=== PATIENT | female | born 1960 | race Caucasian/White ===

== ENCOUNTER → 2017-07-19 | Outpatient (REF) | payer OTHER, BC ==
[2017-07-22 00:06] LABS: Lyme Disease IgG/IgM Antibodie <0.91 ISR (0.00-0.90); Lyme Disease IgM Ab Quantitati <0.80 index (0.00-0.79)
== END ==
LOC: M LAB REF 16:54
PROVIDERS: ATTEND Nurse Practitioner Family
DX: M25.562 Pain in left knee (principal)

== ENCOUNTER → 2017-11-17 | Outpatient (REF) | payer OTHER ==
[2017-11-17 21:01] LABS: URIC ACID 7.4 MG/DL (2.6-6.0)
== END ==
LOC: M LAB REF 16:34
DX: M10.9 Gout, unspecified (principal)

== ENCOUNTER 2018-01-28 09:12 | Emergency (ER) | payer OTHER ==
[2018-01-28] MEDS: ALBUTEROL SULFATE 2.5 MG/0.5 ML INH NEB SOLN NEB (10:12)
[2018-01-28 10:41] LABS: INFLUENZA A AMPLIFICATION NEGATIVE (NEGATIVE); INFLUENZA B AMPLIFICATION POSITIVE (NEGATIVE)
== END 2018-01-28 11:10 | disposition home or self-care (01) ==
LOC: M ED 09:12
DX: J10.1 Influenza due to other identified influenza virus with other respiratory manifestations (principal); J45.901 Unspecified asthma with (acute) exacerbation; E03.9 Hypothyroidism, unspecified; F32.9 Major depressive disorder, single episode, unspecified; M19.90 Unspecified osteoarthritis, unspecified site; Z98.1 Arthrodesis status; Z88.5 Allergy status to narcotic agent; Z88.1 Allergy status to other antibiotic agents; Z88.8 Allergy status to other drugs, medicaments and biological substances; Z79.899 Other long term (current) drug therapy
CPT/HCPCS: 71046

== ENCOUNTER → 2018-09-05 | Outpatient (REF) | payer OTHER ==
[2018-09-05 18:10] LABS: FERRITIN 249 NG/ML (8-252); IRON (FE) 55 UG/DL (50-170); PERCENT SATURATION 22.8 % (13.2-45.0); TOTAL IRON BINDING CAPACITY 241 UG/DL (250-450)
[2018-09-05 18:20] LABS: TOTAL 25(OH) VITAMIN D 33.5 NG/ML (30.0-100.0); VITAMIN B12 LEVEL 1416 PG/ML (247-911)
[2018-09-09 14:08] LABS: VITAMIN B1 LEVEL WHOLE BLOOD 103.9 nmol/L (66.5-200.0)
== END ==
LOC: M LAB REF 17:10
DX: K91.2 Postsurgical malabsorption, not elsewhere classified (principal)

== ENCOUNTER → 2019-02-06 | Outpatient (REF) | payer OTHER ==
[~2019-02-06] MED LIST: ALLE4TAB12 PO; CETI10TA PO; LEVO50TA5; MONT10TA2; OLOP0.2S; SERT-155; VENTAER INH
[2019-02-07 13:04] LABS: PERCENT SATURATION 23.6 % (13.2-45.0)
[2019-02-07 13:11] LABS: TOTAL 25(OH) VITAMIN D 32.8 NG/ML (30.0-100.0)
== END ==
LOC: M LAB REF 12:27
PROVIDERS: ATTEND Family Medicine
DX: Z98.84 Bariatric surgery status (principal)

== ENCOUNTER → 2019-02-11 | Outpatient (REF) | payer OTHER | LOC: M LAB REF 16:44 | PROVIDERS: ATTEND Physician Assistant Medical | DX: J02.0 Streptococcal pharyngitis (principal) ==

== ENCOUNTER → 2019-03-21 | Outpatient (REF) | payer OTHER ==
[2019-03-21 14:04] LABS: FERRITIN 186 NG/ML (8-252); IRON (FE) 73 UG/DL (50-170); PERCENT SATURATION 26.4 % (13.2-45.0); TOTAL IRON BINDING CAPACITY 276 UG/DL (250-450)
[2019-03-21 14:14] LABS: TOTAL 25(OH) VITAMIN D 36.4 NG/ML (30.0-100.0); VITAMIN B12 LEVEL > 2000 PG/ML (247-911)
== END ==
LOC: M LAB REF 12:53
PROVIDERS: ATTEND Family Medicine
DX: K91.2 Postsurgical malabsorption, not elsewhere classified (principal)

== ENCOUNTER → 2020-07-30 | Outpatient (REF) | payer OTHER ==
[~2020-07-30] MED LIST changes: -MONT10TA2; +MONT10TA4; -SERT-155; +SERT50TA29
[2020-07-30 12:36] LABS: INR 0.94; PROTHROMBIN TIME 12.8 SECONDS (12.5-14.3)
[2020-07-30 13:09] LABS: ALBUMIN 3.5 GM/DL (3.2-5.2); ALT/SGPT 68 U/L (12-78); BILIRUBIN,DIRECT < 0.1 MG/DL (0.0-0.2); BILIRUBIN,TOTAL 0.7 MG/DL (0.2-1.0); FERRITIN 143 NG/ML (8-252); TOTAL PROTEIN 6.8 GM/DL (6.4-8.2)
[2020-07-30 13:16] LABS: HEPATITIS B SURFACE ANTIBODY NEGATIVE (POSITIVE)
[2020-07-30 13:27] LABS: HEPATITIS B SURFACE ANTIGEN NEGATIVE (NEGATIVE)
[2020-07-30 13:56] LABS: HEPATITIS C VIRUS ABY INDEX 0.2 INDEX (<0.8)
[2020-07-31 17:13] LABS: ALPHA 1 ANTITRYPSIN 129 mg/dL (101-187); ANTI-MITOCHONDRIAL ANTIBODY <20.0 Units (0.0-20.0); ANTI-SMOOTH MUSCLE ANTIBODY 5 Units (0-19); ANTINUCLEAR ANTIBODIES DIRECT Negative (Negative); CERULOPLASMIN 30.1 mg/dL (19.0-39.0); HBVCOREDIFF1 Negative (Negative); HBVCOREDIFF2 Negative (Negative); LIVER-KIDNEY MICROSOMAL ABY <20.1 Units (0.0-20.0); TISSUE TRANSGLUTAMINASE IgA <2 U/mL (0-3); TISSUE TRANSGLUTAMINASE IgG 5 U/mL (0-5)
== END ==
LOC: M LAB REF 12:14
PROVIDERS: ATTEND Family Medicine
DX: R94.5 Abnormal results of liver function studies (principal); K58.9 Irritable bowel syndrome, unspecified; Z83.71 Family history of colonic polyps

== ENCOUNTER → 2020-10-08 | Outpatient (CLI) | payer SELFPAY ==
[~2020-10-08] MED LIST changes: -MONT10TA4; +MONT5TAB2
== END ==
LOC: M LABSMTC 13:17
PROVIDERS: ATTEND Pediatrics
DX: Z20.828 Contact with and (suspected) exposure to other viral communicable diseases (principal)

== ENCOUNTER 2021-01-31 15:04 | Emergency (ER) | payer OTHER ==
[~2021-01-31] VITALS: Ht 162.6 cm; Wt 82.8 kg
[~2021-01-31 15:04] MED LIST changes: +MONT10TA10; -MONT5TAB2
[2021-01-31 15:23] VITALS: BP 129/73
[2021-01-31] MEDS ORDERED: OMEP-221 (15:27)
[2021-01-31] MEDS ORDERED: TOBRSUS8 (15:27)
[2021-01-31] MEDS ORDERED: ESTR10TA (15:27)
[2021-01-31] MEDS ORDERED: LIDOCAINE 1% MDV 20ML VIAL SC ONE (17:00)
[2021-01-31] MEDS ORDERED: NEOSPORIN OINT 0.9 GM PKT TOP ONE (17:25)
== END 2021-01-31 17:34 | disposition home or self-care (01) ==
LOC: M ED 15:04
DX: S61.012A Laceration without foreign body of left thumb without damage to nail, initial encounter (principal); W26.8XXA Contact with other sharp object(s), not elsewhere classified, initial encounter; Y92.9 Unspecified place or not applicable; Y93.9 Activity, unspecified; Y99.9 Unspecified external cause status; Z88.8 Allergy status to other drugs, medicaments and biological substances; Z79.899 Other long term (current) drug therapy

== ENCOUNTER → 2021-06-14 | Outpatient (REF) | payer OTHER ==
[~2021-06-14] MED LIST changes: +ESTR10TA; -OLOP0.2S; +OLOP2.5D7; +OMEP-221; +TOBRSUS8
[2021-06-14 12:50] LABS: PERCENT SATURATION 30.7 % (13.2-45.0)
== END ==
LOC: M LAB REF 11:41
PROVIDERS: ATTEND Family Medicine
DX: D51.9 Vitamin B12 deficiency anemia, unspecified (principal); E66.01 Morbid (severe) obesity due to excess calories

== ENCOUNTER → 2022-08-12 | Outpatient (REF) | payer OTHER ==
[~2022-08-12] MED LIST changes: -MONT10TA10; +MONT10TA97; -OMEP-221; +OMEP40CA5
[2022-08-12 14:57] LABS: PERCENT SATURATION 34.9 % (13.2-45.0)
[2022-08-12 15:32] LABS: TOTAL 25(OH) VITAMIN D 32.8 NG/ML (30.0-100.0)
== END ==
LOC: M LAB REF 12:27
PROVIDERS: ATTEND Family Medicine
DX: K91.2 Postsurgical malabsorption, not elsewhere classified (principal)

== ENCOUNTER → 2023-06-16 | Outpatient (CLI) | payer OTHER | LOC: M WUC 15:05 | PROVIDERS: ATTEND Nurse Practitioner Family | DX: S82.61XA Displaced fracture of lateral malleolus of right fibula, initial encounter for closed fracture (principal); M25.571 Pain in right ankle and joints of right foot; X58.XXXA Exposure to other specified factors, initial encounter; Y92.9 Unspecified place or not applicable ==

== ENCOUNTER → 2023-11-06 | Outpatient (REF) | payer OTHER ==
[2023-11-06 14:30] LABS: FERRITIN 50.8 NG/ML (7.3-270.7); PERCENT SATURATION 30.5 % (13.2-45.0)
== END ==
LOC: M LAB REF 12:01
PROVIDERS: ATTEND Family Medicine
DX: K21.9 Gastro-esophageal reflux disease without esophagitis (principal); Z98.84 Bariatric surgery status

== ENCOUNTER → 2023-11-15 | Outpatient (CLI) | payer OTHER | LOC: M WHC 09:26 | PROVIDERS: ATTEND Family Medicine | DX: Z12.31 Encounter for screening mammogram for malignant neoplasm of breast (principal); Z13.820 Encounter for screening for osteoporosis; M85.88 Other specified disorders of bone density and structure, other site ==

== ENCOUNTER → 2024-05-07 | Outpatient (REF) | payer OTHER | LOC: M LAB REF 12:08 | PROVIDERS: ATTEND Family Medicine | DX: E03.9 Hypothyroidism, unspecified (principal); F34.1 Dysthymic disorder ==